=== PATIENT | female | born 1985 | race Caucasian/White ===

== ENCOUNTER 2019-11-09 17:02 | Emergency (ER) | payer BC, SELFPAY ==
[2019-11-09 17:14] VITALS: BP 125/76; PULSE 80; RESP 16; TEMP 37.2; O2SAT 100
--- NOTE | 2019-11-09 17:22 | ED.GENADULT ---
HPI - General Adult General Chief complaint: Skin/Abscess/Foreign Body Stated complaint: hives on back of legs/stomach Time Seen by Provider: 11/09/19 17:22 Source: patient and RN notes reviewed Mode of arrival: ambulatory Limitations: no limitations History of Present Illness HPI narrative: 34-year-old female presents with complaints of diffused red and itching hives to back of legs and anterior trunk for the past 3 days. Zyrtec with little relief. Patricia says she has history of intermittently hives throughout her life and has treated them with 10mg of Zyrtec with some relief and that Benadryl (last used 1 week ago) does not help. Zyrtec has not been helping over the past 3 days. Denies treatment for hives from record pressman or program director/morning show host. Denies new changes in personal hygiene products or laundry detergent. No new foods or medications. No swelling, burning, bleeding, or drainage. Denies fever, chills, headaches, weakness, facial swelling, or tongue swelling. Denies chest pain or dyspnea. Tolerating po intake well. LMP 02/2019 hysterectomy. The patient reports she have not been diagnosed with COVID-19. The patient reports she is not waiting for the results of a COVID-19 lab test. The patient reports she do not have fever, chills, fatigue, or myalgia. The patient reports she do not have a new or worsening cough or shortness of breath. Denies chest pain. The patient reports she do not have any rhinorrhea, congestion, sore throat, nausea, vomiting, abdominal pain, and diarrhea. Denies recent traveling. Denies concerns for COVID-19 or exposures been home with limited outdoor exposure except for essential household needs, work, and return home. At this time, patient is not suspected of having COVID-19. Some parts of this dictation were generated by voice recognition software and may contain typographical and/or grammatical inaccuracies. Related Data Home Medications Medication Instructions Recorded Confirmed cetirizine [Zyrtec] 10 mg PO DAILY 11/09/19 11/09/19 Allergies Allergy/AdvReac Type Severity Reaction Status Date / Time No Known Allergies Allergy Verified 11/09/19 17:23 Review of Systems Review of Systems: Narrative: CONSTITUTIONAL: Denies fever, chills, sweats. EYES: Denies visual changes, redness, discharge. ENT: Denies rhinorrhea, congestion, sore throat, otalgia. CARDIOVASCULAR: Denies chest pain, palpitations, edema. RESPIRATORY: Denies dyspnea, wheezing, cough. GASTROINTESTINAL: Denies abdominal pain, nausea, vomiting, diarrhea. GENITOURINARY: Denies dysuria, hematuria, abnormal discharge. SKIN: Complains of diffused red and itching hives to back of legs and anterior trunk. Denies open areas, drainage. MUSCULOSKELETAL: Denies acute back pain, joint pain, or myalgia. NEUROLOGIC: Denies numbness or focal weakness. PSYCHIATRIC: Denies anxiety or depression. All systems reviewed & are unremarkable except as noted in HPI and below. [facility] Past Medical History Medical History (Updated 11/11/19 @ 21:01 by DARLENE Nunes) Rash Surgical History Surgical History (Updated 11/09/19 @ 17:46 by DARLENE Nunes) History of dilation and curettage History of hysterectomy History of tubal ligation Family History Family History (Updated 11/09/19 @ 17:46 by DARLENE Nunes) Father Smoker Mother Hypertension Social History Social History (Updated 11/09/19 @ 17:47 by DARLENE Nunes) Smoking status: Never smoker Tobacco type: cigarettes Second hand tobacco smoke exposure: No Alcohol intake: never Substance use: never Living arrangements: with family Occupation/Education: occupation Gender identity (if verbalized by the patient): Female Sexual Orientation (if Verbalized by the Patient): Straight or Heterosexual Comments At time of signature, agree with nurse past medical, surgical, social, and family history. There is relevant patient's past medical history
== END 2019-11-09 17:46 | disposition home or self-care (01) ==
PROVIDERS: Emergency Provider Nurse Practitioner Family
DX: L50.9 Urticaria, unspecified (principal)
CPT/HCPCS: 99213; G0463

== ENCOUNTER 2020-03-23 09:53 | Emergency (ER) | payer BC, SELFPAY ==
[2020-03-23 10:06] VITALS: BP 125/87; PULSE 88; RESP 20; TEMP 37.3; O2SAT 100
--- NOTE | 2020-03-23 10:14 | ED.GENADULT ---
HPI - General Adult General Chief complaint: Skin/Abscess/Foreign Body Stated complaint: Rash Time Seen by Provider: 03/23/20 10:14 Source: patient and RN notes reviewed Mode of arrival: ambulatory Limitations: no limitations History of Present Illness HPI narrative: 35-year-old female presents with complaints of intermittent, diffused, raised, red, and itching hives for the past 3 days. Patricia reports she has been on Penicillin for over a week for dental treatment (tooth extraction), on Wednesday03/20/20 she took a Penicillin and Hydrocodone 5/325mg, on 03/21/20 she noticed hives on arms and abdomen. Benadryl last on 03/21/20 and Claritin last on 03/22/19 with little relief. History of hives for unknown reasons. Denies new changes in personal hygiene products or laundry detergent. No new foods. Reports swelling to right arm. No burning, bleeding, or drainage. Denies fever, chills, headaches, weakness, fatigue, myalgia, facial swelling, or tongue swelling. Denies chest pain or dyspnea. Tolerating po intake well. LMP hysterectomy. Remains Active. The patient reports she have not been diagnosed with COVID-19. The patient reports she is not waiting for the results of a COVID-19 lab test. The patient reports she do not have fever, chills, weakness, or fatigue. The patient reports she do not have a new or worsening cough or shortness of breath. Denies chest pain. The patient reports she do not have any rhinorrhea, congestion, sore throat, loss of taste, nausea, vomiting, abdominal pain, and diarrhea. Denies recent traveling. Denies concerns for COVID-19 or exposures been home with limited outdoor exposure except for essential household needs, work, and return home. At this time, patient is not suspected of having COVID-19. Some parts of this dictation were generated by voice recognition software and may contain typographical and/or grammatical inaccuracies. Related Data Allergies Allergy/AdvReac Type Severity Reaction Status Date / Time acetaminophen [From Vicodin] Allergy Unknown Unknown Verified 03/23/20 12:31 hydrocodone [From Vicodin] Allergy Unknown Unknown Verified 03/23/20 12:31 Penicillins Allergy Unknown Unknown Verified 03/23/20 12:30 Review of Systems Review of Systems: Narrative: CONSTITUTIONAL: Denies fever, chills, sweats. EYES: Denies visual changes, redness, discharge. ENT: Denies rhinorrhea, congestion, sore throat, otalgia. CARDIOVASCULAR: Denies chest pain, palpitations, edema. RESPIRATORY: Denies dyspnea, wheezing, cough. GASTROINTESTINAL: Denies abdominal pain, nausea, vomiting, diarrhea. GENITOURINARY: Denies dysuria, hematuria, abnormal discharge. SKIN: Complains of intermittent, diffused, raised, red, and itching hives. Denies drainage. MUSCULOSKELETAL: Denies acute back pain, joint pain, or myalgia. Swelling to RT arm. NEUROLOGIC: Denies numbness or focal weakness. PSYCHIATRIC: Denies anxiety or depression. All systems reviewed & are unremarkable except as noted in HPI and below. [facility] Past Medical History Medical History Rash Surgical History Surgical History History of dilation and curettage History of hysterectomy History of tubal ligation Family History Family History Father Smoker Mother Hypertension Social History Social History Smoking status: Never smoker Tobacco type: cigarettes Second hand tobacco smoke exposure: No Alcohol intake: never Substance use: never Gender identity (if verbalized by the patient): Female Comments At time of signature, agree with nurse past medical, surgical, social, and family history. There is relevant patient's past medical history pertinent to the presenting complaint, no relevant family history pertinent to the presen
[2020-03-23] MEDS: methylPREDNISolone SOD SUCC 125 MG VIAL IM (10:31)
== END 2020-03-23 10:50 | disposition home or self-care (01) ==
PROVIDERS: Emergency Provider Nurse Practitioner Family
DX: L50.9 Urticaria, unspecified (principal)
CPT/HCPCS: 96372; 99213; G0463; J2930

== ENCOUNTER 2020-11-06 16:31 | Emergency (ER) | payer OTHER, SELFPAY ==
[2020-11-06 16:40] VITALS: BP 130/83; PULSE 91; RESP 20; TEMP 37; O2SAT 100
--- NOTE | 2020-11-06 17:22 | ED.SKABFB ---
HPI - Skin/Abscess/Foreign Bdy General Chief complaint: Skin/Abscess/Foreign Body Stated complaint: hives and blisters on ankles Time Seen by Provider: 11/06/20 17:15 Source: patient Mode of arrival: ambulatory Limitations: no limitations History of Present Illness HPI narrative: Patricia Cortez is a 35 yo female with a PMH of idiopathic hives and takes zyrtec and pepcid. Yesterday noticed the blisters bilateral lower legs. These blisters are painful and rating them 7 out of 10 Related Data Allergies Allergy/AdvReac Type Severity Reaction Status Date / Time acetaminophen [From Vicodin] Allergy Unknown Unknown Verified 03/23/20 12:31 hydrocodone [From Vicodin] Allergy Unknown Unknown Verified 03/23/20 12:31 Penicillins Allergy Unknown Unknown Verified 03/23/20 12:30 Review of Systems Review of Systems: CONSTITUTIONAL: Denies fever, chills, sweats. EYES: Denies visual changes, redness, discharge. ENT: Denies rhinorrhea, congestion, sore throat, otalgia. CARDIOVASCULAR: Denies chest pain, palpitations, edema. RESPIRATORY: Denies dyspnea, wheezing, cough GASTROINTESTINAL: Denies abdominal pain, nausea, vomiting, diarrhea. GENITOURINARY: Denies dysuria, hematuria, abnormal discharge SKIN: Hives and blistering of skin around ankles, patient is being treated by reversal print inspector and autism tutor for similar idiopathic hives but blistering is new NEUROLOGIC: Denies numbness, or focal weakness. PSYCHIATRIC: Denies anxiety or depression. [facility] Past Medical History Medical History Idiopathic urticaria Rash Surgical History Surgical History History of dilation and curettage History of hysterectomy History of tubal ligation Family History Family History Father Smoker Mother Hypertension Social History Social History Smoking status: Never smoker Tobacco type: cigarettes Second hand tobacco smoke exposure: No Alcohol intake: never Substance use: never Gender identity (if verbalized by the patient): Female Comments At time of signature, I agree with nursing past medical, surgical, social and family history. There is no relevant family history pertinent to the presenting complaint. Exam Narrative: GENERAL: This is a well-nourished, well-developed patient, in mild distress. HEAD: normocephalic, atraumatic. EYES: Sclera clear/white. Vision is grossly intact. EARS: External ears normal, auditory canals clear and without drainage, TMs normal without perforation. Hearing grossly intact. NOSE: External nose normal without nasal discharge, nares without redness, no rhinorrhea. THROAT: Mucous membranes moist, NECK: Neck supple, non-tender CARDIOVASCULAR: Regular rate and rhythm without murmurs, gallops, or rubs. RESPIRATORY: Clear to auscultation. Breath sounds equal bilaterally. No wheezes, rales, or rhonchi. GASTROINTESTINAL: Abdomen soft, non-tender, SKIN: warm, intact with hives that are tender with blisters developing around the ankles bilaterally NEURO: awake, alert, and oriented to person, place and time. There were no obvious focal neurologic abnormalities. Steady gait EXTREMITIES: Normal range of motion. BACK: Nontender without deformity Course Course Emergency Course: Patient comes with blisters and hives around ankles bilaterally with discoloration from healing hives higher on her legs she currently sees a autism tutor and an reversal print inspector in [place] and these hives are idiopathic this is the first time she had blisters Prednisone 60 mg given Due to unknown nature of cause and being treated at an outside group started on both prednisone and antibiotic and should follow-up with the specialist Vital Signs Vital signs: Vital Signs Temperature 98.6 F 11/06/20 16:40 Pulse Rate 91
[2020-11-06] MEDS: predniSONE 20 MG TABLET 60 MG PO (17:54)
== END 2020-11-06 18:23 | disposition home or self-care (01) ==
PROVIDERS: Emergency Provider Nurse Practitioner
DX: L50.1 Idiopathic urticaria (principal); S90.522A Blister (nonthermal), left ankle, initial encounter; S90.521A Blister (nonthermal), right ankle, initial encounter; X58.XXXA Exposure to other specified factors, initial encounter
CPT/HCPCS: 99213; G0463; J7512

== ENCOUNTER 2020-12-26 10:13 | Emergency (ER) | payer OTHER, SELFPAY ==
[2020-12-26 10:21] VITALS: BP 128/80; PULSE 94; RESP 16; TEMP 36.8; O2SAT 99
--- NOTE | 2020-12-26 10:30 | ED.SKABFB ---
HPI - Skin/Abscess/Foreign Bdy General Chief complaint: Skin/Abscess/Foreign Body Stated complaint: Rash/ Swollen Hands Time Seen by Provider: 12/26/20 10:35 Source: patient and RN notes reviewed Mode of arrival: ambulatory Limitations: no limitations History of Present Illness HPI narrative: Current plan is a 35-year-old female patient arrives ambulatory to the [facility]. She comes planes of red itchy raised hive all over her body. Her right hand is covered in hives and the left upper and lower extremity. Patient states the hives are also on her chest and back. Patient has had idiopathic hives since the age of 13. She has followed up with dermatology and an rib matcher and fitter. She has an appointment with the rib matcher and fitter at the end of the month. Patient takes Pepcid and Zyrtec daily for prevention. Patient denies any shortness of breath, tongue or mouth swelling, or any other symptoms. MD complaint: rash Related Data Allergies Allergy/AdvReac Type Severity Reaction Status Date / Time fexofenadine [From Lina] Allergy Severe Swelling Verified 12/26/20 10:32 hydroxyzine Allergy Severe Swelling Verified 12/26/20 10:31 Review of Systems Review of Systems: CONSTITUTIONAL: Denies body aches, fever, chills, or sweats. EYES: Denies visual changes, redness, or discharge. ENT: Denies rhinorrhea, congestion, sore throat, or otalgia. CARDIOVASCULAR: Denies chest pain, palpitations, or edema. RESPIRATORY: Denies cough or dyspnea ow wheezing GASTROINTESTINAL: Denies abdominal pain, nausea, vomiting, or diarrhea. GENITOURINARY: Denies dysuria or hematuria. SKIN:+ Hives to bilateral arms, chest, and back MUSCULOSKELETAL: Denies back pain, joint pain, or myalgia. NEUROLOGIC: Denies headache, numbness, tingling, or weakness. PSYCH: Denies depression or anxiety. All systems reviewed & are unremarkable except as noted in HPI and below PMFSH Past Medical History Medical History Idiopathic urticaria Rash Surgical History Surgical History History of dilation and curettage History of hysterectomy History of tubal ligation Family History Family History Father Smoker Mother Hypertension Social History Social History Smoking status: Never smoker Tobacco type: cigarettes Second hand tobacco smoke exposure: No Alcohol intake: never Substance use: never Gender identity (if verbalized by the patient): Female Sexual Orientation (if Verbalized by the Patient): Straight or Heterosexual Comments At time of signature, I have reviewed and agree with nursing past medical, surgical, social and family history unless otherwise noted. Please see nursing chart for further information. There is no relevant family history pertinent to the presenting complaint Exam Narrative: GENERAL: Well-appearing, well-nourished, and in no acute distress. HEAD: Normocephalic, atraumatic. EYES: EOMI. No redness or drainage. Conjunctivae normal. ENT: Mucous membranes pink and moist. Nares clear. No rhinorrhea.. Throat normal. NECK: Normal AROM. Supple. No lymphadenopathy. CHEST: No respiratory distress. Clear to auscultation. MUSCULOSKELETAL: No bony tenderness. EXTREMITIES: Normal range of motion. No edema. SKIN: Warm, dry. Capillary refill normal. Normal skin turgor. raised, erythemic hives covering upper torso, back, and arms. NEURO: No focal deficits. Alert and oriented x3. Gait steady. PSYCH: Normal affect. No signs of depression or anxiety. Course Course Emergency Course: Patient was examined and then given Solu-Medrol 125 mg IM. Patient is to start a tapering dose of prednisone starting tomorrow. Vital Signs Vital signs: Vital Signs Temperature 36.8 C 12/26/20 10:21 Pulse Rate 94 12/26/20 10:21 Respiratory R
[2020-12-26] MEDS: methylPREDNISolone SOD SUCC 125 MG VIAL IM (10:45)
== END 2020-12-26 11:05 | disposition home or self-care (01) ==
PROVIDERS: Emergency Provider Nurse Practitioner Family
DX: L50.9 Urticaria, unspecified (principal)
CPT/HCPCS: 96372; 99213; G0463; J2930

== ENCOUNTER 2021-04-07 08:40 | Emergency (ER) | payer OTHER, SELFPAY ==
[2021-04-07 08:54] VITALS: BP 121/85; PULSE 109; RESP 14; TEMP 37.6; O2SAT 99
[2021-04-07 09:09] VITALS: BP 121/85; PULSE 109; RESP 14; TEMP 37.6; O2SAT 99
--- NOTE | 2021-04-07 09:13 | ED.GENADULT ---
HPI - General Adult General Chief complaint: Skin/Abscess/Foreign Body Stated complaint: left side pain and hives Source: patient Mode of arrival: ambulatory Limitations: no limitations History of Present Illness HPI narrative: Patient presents for evaluation of hives and abdominal pain. She indicates she has an ongoing issue with intermittent hives. Her current symptoms have been present for the last 7 days. She reports associated itching to the bilateral upper extremities, and trunk. She also reports some lip swelling. Denies any difficulty breathing or swallowing. No new lotions, soaps, detergents, topical products. She saw dermatology in the past for this and they did testing which was all negative. She states that she has used prednisone in the past with improvement in her symptoms thereafter. She has experienced LLQ pain for the past three days. Pain radiates into the left flank. Pain is constant, dull, 6/10 in severity. She has nausea without vomiting. No fever, chills, urinary symptoms, change in bowel pattern. Last bowel movement was yesterday, solid in consistency, without the presence of blood or mucous in the stool. No ETOH use. Surgical history positive for hysterectomy. Related Data Allergies Allergy/AdvReac Type Severity Reaction Status Date / Time fexofenadine [From Lina] Allergy Severe Swelling Verified 04/07/21 08:59 hydroxyzine Allergy Severe Swelling Verified 04/07/21 08:59 Review of Systems Review of Systems: CONSTITUTIONAL: Denies fever, chills, or sweats. EYES: Denies visual changes, redness, or discharge. ENT: Denies rhinorrhea, congestion, sore throat, or otalgia. CARDIOVASCULAR: Denies chest pain, palpitations, or edema. RESPIRATORY: Denies cough or dyspnea. GASTROINTESTINAL: Reports LLQ pain with radiation into left flank. Reports nausea. Denies vomiting, or diarrhea. GENITOURINARY: Denies dysuria or hematuria. SKIN: Reports hives with associated itching to the trunk and bilateral upper EXTR MUSCULOSKELETAL: Denies back pain, joint pain, or myalgia. NEUROLOGIC: Denies headache, numbness, dizziness, or weakness. PSYCHIATRIC: Denies anxiety or depression. [facility] Past Medical History Medical History Idiopathic urticaria Rash Surgical History Surgical History History of dilation and curettage History of hysterectomy History of tubal ligation Family History Family History Father Smoker Mother Hypertension Social History Social History Smoking status: Never smoker Tobacco type: cigarettes Second hand tobacco smoke exposure: No Alcohol intake: never Substance use: never Gender identity (if verbalized by the patient): Female Sexual Orientation (if Verbalized by the Patient): Straight or Heterosexual Exam Narrative: GENERAL: Well-appearing, well-nourished, and in no acute distress. HEAD: Normocephalic, atraumatic. EYES: PERRLA and EOMI. ENT: Nares clear, no rhinorrhea or epistaxis. Mucous membranes moist. Oropharynx without tonsillar hypertrophy exudate or other lesions. Bilateral TMs pearly duncan nonbulging NECK: Supple. No adenopathy or masses. No carotid bruits or JVD CHEST: Clear to auscultation. No respiratory distress. No wheezes rales or rhonchi HEART: Regular rate and rhythm. No murmur heard. Normal peripheral pulses. ABDOMEN: Soft, tenderness in LLQ without rebound or guarding. Abdomen is nondistended, normal active bowel sounds. EXTREMITIES: Normal range of motion. No edema. SKIN: Several large raised erythematous wheals noted to back and BUE NEURO: No focal deficits. Alert and oriented x3. PSYCH: Normal mood and affect. Course Course Emergency Course: This is a 36-year-old female who presented with complaints of h
== END 2021-04-07 09:30 | disposition short-term general hospital (02) ==
PROVIDERS: Emergency Provider Nurse Practitioner
DX: L50.9 Urticaria, unspecified (principal); R31.29 Other microscopic hematuria; R10.32 Left lower quadrant pain
CPT/HCPCS: 81003; 99213; G0463

== ENCOUNTER 2021-04-07 10:01 | Emergency (ER) | payer OTHER, SELFPAY ==
--- NOTE | ~2021-04-07 | CT_ITS ---
EXAMINATION: CT abdomen pelvis w con DATE: 04/07/2021 12:35 INDICATION: Left-sided abdominal pain. TECHNIQUE: Computed tomography (CT) of the abdomen and pelvis was performed with 100 mL Omnipaque-350 intravenous contrast. Automated exposure control and iterative reconstruction technique were employe d. The dose-length product was 373.71 mGy-cm. COMPARISON: 06/19/2018 FINDINGS: Minimal dependent atelectasis at the posterior sulci of the bilateral lower lobes. Heart size is norm al. No pericardial or pleural effusion. Cholecystectomy clips at the gallbladder fossa. Liver, spleen , pancreas, bilateral adrenal glands and right kidney are normal. 5 mm cyst at the lower pole of the left kidney. Small bowel and appendix are normal. Mild sigmoid predominant colonic diverticulosis. Fo francis wall thickening in the descending colon near the splenic flexure where there is inflammatory stra nding surrounding a diverticulum consistent with diverticulitis. No abscess or free intraperitoneal g as or fluid. The anterior wall of a short segment of transverse colon projects into a small wide mout hed fat-containing umbilical hernia. Bladder is normal. The uterus is not identified and has likely b een surgically resected. No pathologically enlarged abdominal or pelvic lymphadenopathy. Mild lumbar levocurvature. IMPRESSION: 1. Radiographically uncomplicated diverticulitis at the proximal descending colon. Reviewed, dictated and finalized at location A. TRIMMER IMPRESSION: 1. Radiographically uncomplicated diverticulitis at the proximal descending col on.
[2021-04-07 10:38] VITALS: BP 125/78; PULSE 93; RESP 16; TEMP 36.3; O2SAT 100
[2021-04-07 11:50] VITALS: BP 132/84; PULSE 88; RESP 16; O2SAT 98
[2021-04-07 12:07] LABS: Basophils Percent Auto 0.2 % (0.2-1.2); Eosinophils Percent Auto 0.2 % (0-4.4); Hematocrit 41.9 % (37.0-47.0); Hemoglobin 14.3 g/dL (12.0-15.0); Immature Granulocyte Absolute 0.05 K/mm3 (0.00-0.031); Immature Granulocyte Percent A 0.4 % (0-0.5); Lymphocytes Absolute Auto 1.47 K/mm3 (0.9-3.2); Lymphocytes Percent Auto 11.2 % (18.3-44.2); Mean Corpuscular HGB Conc 34.1 g/dl (32-36); Mean Corpuscular Hemoglobin 31.9 pg (26-34); Mean Corpuscular Volume 93.5 fl (80-100); Mean Platelet Volume 8.6 fl (7.4-10.4); Monocytes Absolute Auto 0.9 K/mm3 (0.1-0.6); Monocytes Percent Auto 6.7 % (2.6-8.5); Neutrophils Absolute Auto 10.7 K/mm3 (1.3-6.7); Neutrophils Percent Auto 81.3 % (45.5-73.1); Platelet Count Result 292 k/mm3 (150-375); Red Blood Count 4.48 M/mm3 (4.2-5.4); White Blood Count 13.1 K/mm3 (4.5-10.0)
[2021-04-07] MEDS: SODIUM CHLORIDE 0.9% IV 1,000 ML 999 ML IV CONT (12:19)
[2021-04-07 12:21] LABS: Alanine Aminotransferase 43 U/L (4-35); Albumin Level 4.5 g/dL (3.5-5.1); Alkaline Phosphatase 66 U/L (38-126); Anion Gap 11 mmol/L (8-16); Aspartate Amino Transferase 45 U/L (14-36); Bilirubin,Total 0.8 mg/dL (0.2-1.3); Blood Urea Nitrogen 6 mg/dL (7-17); Calcium 9.1 mg/dL (8.4-10.2); Carbon Dioxide 26 mmol/L (22-30); Chloride 98 mmol/L (98-107); Estimated CRCL calculation 94 ml/min; Estimated Glomerular Filt Rate > 60; Glucose 118 mg/dL (65-110); Lipase 21 U/L (23-300); Potassium 3.4 mmol/L (3.4-5.0); Sodium 135 mmol/L (137-145)
[2021-04-07 12:27] LABS: Add Urine Microscopic? YES; Appearance Urine Clear (Clear); Bacteria Urine Trace /hpf; Bilirubin Urine Negative (Negative); Blood Urine 2+ (Negative); Color Urine Yellow (Yellow); Glucose Urine UA Negative (Negative); Ketones Urine Trace mg/dL (Negative); Leukocyte Esterase Ur Negative LEU/UL (Negative); Mucus Urine Heavy /lpf; Nitrate Urine Negative (Negative); Protein Urine 1+ mg/dL (Negative); Specific Grav Ur 1.028 (1.001-1.035); Squamous Epithelial Cell Urine Many /hpf (Few); WBC Urine 0-3 /hpf
--- NOTE | 2021-04-07 12:32 | ED.ABDPAIN ---
HPI - Abdominal Pain General Chief Complaint: Abdominal Pain Stated Complaint: abd pain Time Seen by Provider: 04/07/21 11:54 Source: patient and RN notes reviewed Mode of arrival: ambulatory Limitations: no limitations History of Present Illness HPI narrative: Patient is 36 years old female present with left abdominal pain started 4 days ago radiating to left flank area, dull aching, worse with certain movements, nothing make it better. Tylenol did not work. Associated with nausea. History of cholecystectomy, hysterectomy, patient does not take medicine at home, patient does not smoke or drink or uses drugs. Related Data Allergies Allergy/AdvReac Type Severity Reaction Status Date / Time fexofenadine [From Lina] Allergy Severe Swelling Verified 04/07/21 11:49 hydroxyzine Allergy Severe Swelling Verified 04/07/21 11:49 Review of Systems Review of Systems: CONSTITUTIONAL: Denies fever, chills, or sweats. EYES: Denies visual changes, redness, or discharge. ENT: Denies rhinorrhea, congestion, sore throat, or otalgia. CARDIOVASCULAR: Denies chest pain, palpitations, or edema. RESPIRATORY: Denies cough or dyspnea. GASTROINTESTINAL: Denies abdominal pain, nausea, vomiting, or diarrhea. GENITOURINARY: Denies dysuria or hematuria. SKIN: Denies rash or itching. MUSCULOSKELETAL: Denies back pain, joint pain, or myalgia. NEUROLOGIC: Denies headache, numbness, or weakness. PSYCHIATRIC: Denies anxiety or depression. PMFSH Past Medical History Medical History Idiopathic urticaria Rash Surgical History Surgical History History of dilation and curettage History of hysterectomy History of tubal ligation Family History Family History Father Smoker Mother Hypertension Social History Social History Smoking status: Never smoker Tobacco type: cigarettes Second hand tobacco smoke exposure: No Alcohol intake: never Substance use: never Gender identity (if verbalized by the patient): Female Sexual Orientation (if Verbalized by the Patient): Straight or Heterosexual Exam Narrative: General appearance: Well-developed, well-nourished Skin: Normal color Head: Normocephalic, nontraumatic Eyes: Clear conjunctiva ENT: Oropharynx normal, ears normal, nose normal Neck: Supple, nontender Chest and respiratory: Airway patent, no respiratory distress, no accessory muscle use Heart: Regular rate/rhythm Abdomen: Soft, mild tenderness left abdomen, no organomegaly, quiet bowel sounds Vascular: Normal peripheral pulses, normal capillary refill. Musculoskeletal: Normal range of motion, nontender back Neurologic: Alert and oriented ?3, INFORMATION SERVICES ASSISTANT is normal as tested, no gross motor deficit Course Course Emergency Course: Stable Vital Signs Vital signs: Vital Signs Temperature 36.3 C L 04/07/21 10:38 Pulse Rate 93 04/07/21 10:38 Respiratory Rate 16 04/07/21 10:38 Blood Pressure 125/78 04/07/21 10:38 Pulse Oximetry 100 04/07/21 10:38 Temperature 36.3 C L 04/07/21 10:38 Pulse Rate 88 04/07/21 11:50 Respiratory Rate 16 04/07/21 11:50 Blood Pressure 132/84 04/07/21 11:50 Pulse Oximetry 98 04/07/21 11:50 MDM - Abdominal Pain Differential Diagnosis Differential diagnosis: Likely abdominal pain, calculus of kidney, constipation, diverticulitis and pancreatitis Lab Data Result diagrams: 04/07/21 11:59 04/07/21 11:59 Labs: Lab Results 04/07/21 04/07/21 04/07/21 Range/Units 11:59 1
[2021-04-07] MEDS: ONDANSETRON INJ 4 MG/2 ML VIAL IV PUSH (13:53)
[2021-04-07] MEDS: AMOXICILLIN/CLAVULANATE K 875-125 MG TAB 1 TABLET PO (13:53)
[2021-04-07] MEDS: MORPHINE SULFATE (*CRX) 4 MG/ML INJ IV PUSH (13:54)
[2021-04-07 14:33] VITALS: BP 132/88; PULSE 84; RESP 16; O2SAT 98
== END 2021-04-07 14:34 | disposition home or self-care (01) ==
PROVIDERS: Emergency Provider Emergency Medicine
DX: K57.32 Diverticulitis of large intestine without perforation or abscess without bleeding (principal)
CPT/HCPCS: 36415; 74177; 80053; 81001; 81003; 83690; 85025; 96361; 96374; 96375; 99284; A9270; J2270; J2405; J7030; Q9967

== ENCOUNTER 2021-11-26 13:47 | Emergency (ER) | payer OTHER, SELFPAY ==
[2021-11-26 13:53] VITALS: BP 131/86; PULSE 102; RESP 20; TEMP 36.9; O2SAT 100
--- NOTE | 2021-11-26 14:21 | ED.SKABFB ---
HPI - Skin/Abscess/Foreign Bdy General Chief complaint: Skin/Abscess/Foreign Body Stated complaint: hives Time Seen by Provider: 11/26/21 14:00 Source: patient and RN notes reviewed History of Present Illness HPI narrative: Patient is a 36-year-old female who presents the urgent care with complaints of hives to the right thigh, right lower leg and left arm. Patient states that they started last night. States that she typically can get them under control with Benadryl and Zyrtec however the areas of gotten much larger and painful today. Patient states that she takes a allergy shot once a month for the hives and she gets her shot at the end of next week. Patient denies of any known triggers. 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 No other acute complaints. No acute distress noted. Patient read the plan of care. Some parts of this dictation were generated by voice recognition software and may contain typographical and/or grammatical inaccuracies. Related Data Allergies Allergy/AdvReac Type Severity Reaction Status Date / Time fexofenadine [From Lina] Allergy Severe Swelling Verified 09/29/21 14:30 hydroxyzine Allergy Severe Swelling Verified 09/29/21 14:30 Review of Systems Review of Systems: CONSTITUTIONAL: Denies fever, chills, or sweats. EYES: Denies visual changes, redness, or discharge. ENT: Denies rhinorrhea, congestion, sore throat, or otalgia. CARDIOVASCULAR: Denies chest pain, palpitations, or edema. RESPIRATORY: Denies cough or dyspnea. GASTROINTESTINAL: Denies abdominal pain, nausea, vomiting, or diarrhea. GENITOURINARY: Denies dysuria or hematuria. SKIN: Reports of hives to the right thigh and left arm MUSCULOSKELETAL: Denies back pain, joint pain, or myalgia. NEUROLOGIC: Denies headache, numbness, or weakness. All other systems reviewed are negative, except as documented in HPI. [facility] Past Medical History Medical History Anxiety Cystocele Hypertension Idiopathic urticaria Rash Surgical History Surgical History History of cholecystectomy History of dilation and curettage History of robot-assisted laparoscopic hysterectomy (02/23/19) History of sacrocolpopexy (02/23/19) History of tubal ligation Family History Family History Father Smoker Mother Hypertension Social History Social History (Updated 09/29/21 @ 14:33 by MIKEL Concepcion) Smoking status: Never smoker Tobacco type: cigarettes Second hand tobacco smoke exposure: No Alcohol intake: never Substance use: never Substance use type: does not use Additional living arrangements comments: 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 There is no relevant family history pertinent to the patient complaint. Exam Narrative: GENERAL: This is a well-nourished, well-developed patient, in no apparent distress. HEAD: normocephalic, atraumatic. EYES: PERRL. Sclera clear/white. Vision is grossly intact. EARS: External ears normal NOSE: External nose normal with no obvious nasal discharge, nares without redness, no rhinorrhea. THROAT: Mucous membranes moist NECK: Neck supple CARDIOVASCULAR: Regular rate and rhythm without murmurs, gallops, or rubs. RESPIRATORY: Clear to auscultation. Breath sounds equal bilaterally. No wheezes, rales, or rhonchi. SKIN: 21 x 15 cm urticaria to the right thigh, 7 x 7 cm area. To the right thigh, and approximately 10 x 10 cm area of pericardia to the left upper arm, blanching erythemic and raised. Warm, intact with no suspicious lesions or rash, good texture and tur
== END 2021-11-26 14:33 | disposition home or self-care (01) ==
PROVIDERS: Emergency Provider Nurse Practitioner Family
DX: L50.9 Urticaria, unspecified (principal); I10 Essential (primary) hypertension
CPT/HCPCS: 99213; G0463

== ENCOUNTER 2024-01-14 14:31 | Emergency (ER) | payer OTHER, SELFPAY ==
[2024-01-14 14:39] VITALS: BP 124/87; PULSE 70; RESP 18; TEMP 36.6; O2SAT 100
--- NOTE | 2024-01-14 14:44 | ED.URI ---
HPI - URI/Sore Throat General Chief Complaint: Upper Respiratory Infection Stated Complaint: Cough History of Present Illness HPI Narrative: 39-year-old presented for complaint of nasal congestion and cough for about 1 week. She has been taking Mucinex and reports nasal congestion is improving with the cough is lingering. She denies associated shortness of breath, wheezing, nausea, vomiting, diarrhea, fevers or chills. 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 Related Data Home Medications Medication Instructions Recorded Confirmed omalizumab 150 mg/mL subcutaneous 150 mg subcut DIRECTED 10/05/22 01/14/24 syringe (Xolair) Allergies Allergy/AdvReac Type Severity Reaction Status Date / Time fexofenadine [From Lina] Allergy Severe Swelling Verified 01/14/24 14:47 hydroxyzine Allergy Severe Swelling Verified 01/14/24 14:47 Review of Systems Review of Systems: CONSTITUTIONAL: Denies body aches, fever, chills, or sweats. EYES: Denies visual changes, redness, or discharge. ENT: reports rhinorrhea, congestion, sore throat CARDIOVASCULAR: Denies chest pain, palpitations, or edema. RESPIRATORY: Denies dyspnea. GASTROINTESTINAL: Denies abdominal pain, nausea, vomiting, or diarrhea. SKIN: Denies rash MUSCULOSKELETAL: Denies back pain, joint pain, or myalgia. NEUROLOGIC: Denies headache PMFSH Past Medical History Medical History Anxiety Cystocele Hypertension Idiopathic urticaria Rash Surgical History Surgical History History of cholecystectomy History of dilation and curettage History of robot-assisted laparoscopic hysterectomy (02/23/19) History of sacrocolpopexy (02/23/19) History of tubal ligation Family History Family History Father Smoker Mother Hypertension Social History Social History Smoking status: Never smoker Tobacco type: cigarettes Second hand tobacco smoke exposure: No Alcohol intake: never Substance use: never Substance use type: does not use Do You Feel Safe in your Home?: Yes Lack of Transportation: No Lack of Food: Never True Current Housing: I Have Housing Concerned About Future Housing: No Difficulty Paying Gas/Electric Bills: No Difficulty Paying for Meds: No Currently Unemployed: No Education: High School Diploma/GED Difficulty w/ Childcare or Family Care: Decline to Answer Living arrangements: with family Additional living arrangements comments: engaged Occupation/Education: occupation 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 EYES: conjunctivae clear ENT: Mucous membranes moist. TMs pearly duncan with normal light reflex bilaterally; no tragal tenderness. Oropharynx not erythematous without lesions. No drooling, no hoarseness, no trismus, uvula midline. No tripod positioning, hot potato voice, or soft palate swelling. NECK: Supple. No lymphadenopathy CHEST: Clear to auscultation, breath sounds equal. No respiratory distress, speaks in full sentences. HEART: Regular rate and rhythm. No murmur heard. SKIN: Warm, dry, no rash. NEURO: Alert and oriented x3. Course Course Emergency Course: Patient is aware of diagnosis, understands and agrees to treatment plan. Anticipatory guidance given. Patient agrees to follow-up as directed and is aware of reasons to seek care at the emergency department. Portions of this record may have been created with voice recognition software Level of Care: Express Care Visit MDM - URI/Sore Throat MDM Narrative Medical decision making narrative: flu and covid result reviewed with pt. Advise supportive treatments. Patient is appropriate for outpatient treatment and follow-up. Differential Diagnosis Differential diagnosis: Likely upper respiratory infection, viral infection and pharyngitis Discharge Plan Discharge Clinical Impression: Upper respiratory infection Patient Disposition: Home, Self-Care Condition: Stable Instructions: Antibiotic Form, Upper Respiratory Infection (ED) Additional Instructions: Take steroid as directed Recommend Flonase spray and Zyrtec (or Claritin/Lina) if you have nasal congestion over the counter Cough syrup may cause drowsiness; avoid driving or take it at night time. Tylenol 1000mg every 8 hours as needed for pain Symptomatic treatment includes: rest, fluids, and increase humidity of the air at home. Follow up with your primary care provider in 1 week. Go to the ER for worsening symptoms or concerns. Prescriptions: New azithromycin [Zithromax Z-Jim] 250 mg tablet See Rx Instructions .ROUTE .COMPLEX Qty: 6 0RF Rx Instructions: For 250 mg dose pack: take 500 mg today (day 1), then 250 mg for 4 days (days 2-5) benzonatate 200 mg capsule 200 mg PO TID PRN (Reason: cough) Qty: 20 0RF methylprednisolone [Medrol (Jim)] 4 mg tablets,dose pack See Rx Instructions .ROUTE .COMPLEX Qty: 21 0RF Rx Instructions: orally per package directions No Action Xolair 150 mg/mL syringe 150 mg subcut DIRECTED Follow-up/Referrals: Jelena,MD Sadi [Primary Care Provider] -
[2024-01-14 14:47] VITALS: O2SAT 100
[2024-01-14 15:05] LABS: EDCOVIDSCREEN Negative (Negative); EDINFLUASCREEN Negative (Negative); EDINFLUBSCREEN Negative (Negative)
== END 2024-01-14 15:08 | disposition home or self-care (01) ==
PROVIDERS: Emergency Provider Nurse Practitioner Family; PCP Family Medicine
DX: J06.9 Acute upper respiratory infection, unspecified (principal); Z20.822 Contact with and (suspected) exposure to COVID-19; I10 Essential (primary) hypertension
CPT/HCPCS: 87426; 87804; 99213; G0463